=== PATIENT | female | born 1950 ===

== ENCOUNTER 2019-08-08 16:43 | Inpatient (IN) ==
[2019-08-08] MEDS ORDERED: SENNOSIDES 1 TABLET PO PRN (17:29)
[2019-08-08] MEDS ORDERED: IPRATROPIUM/ALBUTEROL 3 ML AMPUL.NEB NEB PRN (17:29)
[2019-08-08] MEDS ORDERED: POLYETHYLENE GLYCOL 3350 17 GM PACKET PO PRN (17:29)
[2019-08-08] MEDS ORDERED: ONDANSETRON 4 MG/2 ML VIAL IV PRN (17:29)
[2019-08-08] MEDS ORDERED: LACTULOSE 20 GM/30 ML ORAL.SOL PO PRN (17:29)
[2019-08-08] MEDS ORDERED: POTASSIUM CHLORIDE 20 MEQ TABLET PO PRN ×2 (17:29)
[2019-08-08] MEDS ORDERED: MAGNESIUM SULFATE 2 GM/50 ML BAG IV PRN (17:29)
[2019-08-08] MEDS ORDERED: POTASSIUM CHLORIDE 40 MEQ in DEXTROSE 5% IN WATER 500 ML IV PRN (17:29)
--- NOTE | 2019-08-08 17:39 | Internal Med History&Physical ---
Medical - H&P: HPI Patient information: Note initiated : 08/08/19 at 5:36 pm Service Date, if different from initiated Date: [] Patient: Jessy Chavez a 69 y/o F admitted on 08/08/19 for afib w rvr. Chief Complaint: [] History of present illness: Ms. Chavez is a 69 year old F Who presents to [facility] for shortness of breath this been going on for about a week. She denies any fevers or chills. Occasional dry cough. She had 10 pound weight gain stating she has been eating a lot of ice cream this week. She also feels much more fatigued than usual. After doing chores outside she felt like she needed to sit down little bit longer to catch her breath. There is no point of sudden discrete shortness of breath, it was more insidious. She denies any heart history. She denies any palpitations. She denies any chest pain. She did not states she has had any increased swelling her legs but when we looked at her legs in the bed she does admit that the are puffier than usual. He denies being sick recently. In the ER she was found to be in A. fib RVR with a rate of 120. An elevated d-dimer led to a CTA of the chest which showed no PE but did show pulmonary edema as well as right pleural effusion. She has a history of hypothyroidism and a TSH was done which was normal limits. Troponin was unremarkable. BNP was elevated Review of Systems: Pertinent positives as above. Denies headache/fever/chills/nausea/vomiting/abdominal pain/diarrhea. Remaining 10 point review of system reviewed negative Medical - H&P: PMH Medical history: Past medical history: Hypothyroidism Breast cancer possible Chronic kidney disease stage III Surgical history: Bilateral knee surgery Tonsillectomy Right colectomy with lymph node dissection right axilla Family history: States her mother and father both healthy Social history: Former smoker quit 13 years ago Denies alcohol use Was at home with her is been Medical - H&P: Meds Allergies Allergy/AdvReac Type Severity Reaction Status Date / Time Penicillins Allergy Unknown UNKNOWN Unverified 03/08/15 00:05 Medical - H&P: Reslt - Impressions CTA read as showing no PE but did show pulmonary edema and right pleural effusion Medical - H&P: A/P - Narrative A/P Narrative: Assessment: *Afib w/RVR (new): sounds like this has been going on for a week -CHADSVASC=3 *Acute CHF with Pulmonary Edema & Right pleural effusion: 2/2 above -Troponin negative *Dyspnea/Fatigue: 2/2 above *Hypothyroidism: TSH within normal limits * Plan: -IV lasix then will likely transition to Aldactone upon d/c -wean off dilt gtt to PO lopressor -echo pending -lovenox bid, will transition to NOAC at d/c -check mag -f/u with cardiology for possible cardioversion full code
[2019-08-08] MEDS ORDERED: METOPROLOL TARTRATE 5 MG/5 ML VIAL IV PRN (17:43)
[2019-08-08] MEDS: DILTIAZEM 125 MG in DEXTROSE 5% IN WATER 100 ML IV SCH (18:38)
[2019-08-08] MEDS ORDERED: FUROSEMIDE 40 MG/4 ML VIAL IV ONE (20:00)
[2019-08-08] MEDS: DOCUSATE SODIUM 100 MG CAPSULE PO SCH ×2 (20:37→21:44)
[2019-08-08] MEDS: METOPROLOL TARTRATE 25 MG TABLET PO SCH (20:37)
[2019-08-08] MEDS: 0.9 % SODIUM CHLORIDE 10 ML SYRINGE IV SCH (20:37)
[2019-08-09] MEDS: DILTIAZEM 125 MG in DEXTROSE 5% IN WATER 100 ML IV SCH (05:12)
[2019-08-09] MEDS: 0.9 % SODIUM CHLORIDE 10 ML SYRINGE IV SCH ×3 (05:36→21:15)
[2019-08-09 06:17] LABS: Basophils # (Auto) 0.1 K/mcL (0.0-0.3); Basophils % (Auto) 1.3 % (0.0-2.0); Eosinophils # (Auto) 0.2 K/mcL (0.0-0.7); Eosinophils % (Auto) 3.7 % (0.0-7.0); Granulocytes % (Auto) 54.1 % (38.0-78.0); Hematocrit 39.3 % (36.0-48.0); Lymphocytes # (Auto) 1.2 K/mcL (1.5-4.8); Mean Cell Volume 90.8 fL (80.0-100.0); Mean Corpuscular HGB Conc 33.2 g/dL (31.0-36.0); Mean Platelet Volume 9.9 fL (7.4-10.4); Monocytes # (Auto) 0.5 K/mcL (0.1-0.9); Monocytes % (Auto) 11.9 % (1.0-12.0); Platelet Count 151 K/mcL (140-440); RBC 4.33 M/mcL (4.00-5.20); Red Cell Distribution Width 16.2 % (11.5-14.5); WBC 4.2 K/mcL (4.5-11.0)
[2019-08-09 06:42] LABS: ALT/SGPT 19 U/l (0-40); AST/SGOT 24 U/l (0-37); Albumin 3.7 gm/dL (3.2-5.2); Albumin/Globulin Ratio 1.9 (1.0-2.3); Alkaline Phosphatase 46 U/L (39-117); Bilirubin,Direct 0.4 mg/dL (0.0-0.3); Bilirubin,Total 2.2 mg/dL (0.0-1.0); Blood Urea Nitrogen 16 mg/dl (8-23); Carbon Dioxide 22 mmol/L (22-30); Chloride 103 mmol/L (96-108); Glomerular Filtration Rate 42; Glucose 112 mg/dL (70-105); Lactate Dehydrogenase 268 U/L (94-250); Phosphorous 4.5 mg/dL (2.7-4.5); Triglycerides 93 mg/dl (<150); Uric Acid 8.5 mg/dL (2.5-8.0)
--- NOTE | 2019-08-09 07:16 | Internal Med Progress Note ---
Medical - PN: Subj Patient information: Note initiated : 08/09/19 at 7:13 am Service Date, if different from initiated Date: [] Patient: Jessy Chavez 69 y/o F admitted on 08/08/19 for afib w rvr. Chief Complaint: [] Interval history: Ms. Chavez is a 69 year old F Who presents to [facility] for shortness of breath this been going on for about a week. She denies any fevers or chills. Occasional dry cough. She had 10 pound weight gain stating she has been eating a lot of ice cream this week. She also feels much more fatigued than usual. After doing chores outside she felt like she needed to sit down little bit longer to catch her breath. There is no point of sudden discrete shortness of breath, it was more insidious. She denies any heart history. She denies any palpitations. She denies any chest pain. She did not states she has had any increased swelling her legs but when we looked at her legs in the bed she does admit that the are puffier than usual. He denies being sick recently. In the ER she was found to be in A. fib RVR with a rate of 120. An elevated d-dimer led to a CTA of the chest which showed no PE but did show pulmonary edema as well as right pleural effusion. She has a history of hypothyroidism and a TSH was done which was normal limits. Troponin was unremarkable. BNP was elevated 08/09 Patient off diltiazem drip last night. On p.o. Lopressor. Good diuresis last night. Denies shortness of breath this morning. Heart rate 70s to 90s. Echo done awaiting for results. No new complaints. Review of Systems: denies headache/fever/chills/nausea/vomiting/chest or abdominal pain/cough/diarrhea. Otherwise see above. - Constitutional Vitals: Vital Signs Temp Pulse Resp BP Pulse Ox 97.6 F 85 18 101/79 93 08/09/19 04:01 08/09/19 06:01 08/09/19 06:01 08/09/19 06:01 08/09/19 06:01 Period Temp Pulse Resp BP Sys/Lou Pulse Ox Last 24 Hr 97.3 F-98.0 F 32-108 14-29 74-112/53-79 90-96 Intake and Output 08/08/19 08/09/19 08/09/19 21:59 05:59 13:59 Intake Total 24 200 Output Total 1000 875 Balance -976 -675 Weight 79.787 kg Intake & Output: Intake & Output 08/08/19 08/09/19 08/09/19 21:59 05:59 13:59 Intake Total 24 200 Output Total 1000 875 Balance -976 -675 Weight 79.787 kg Intake: IV 24 Cardizem 125 mg In Dextrose 5% 24 in Water 100 ml @ 5 MG/HR 5 mls /hr IV Q12H [facility] Rx#:[id number] Oral 200 Output: Void Amount 1000 875 Other: Urine Appearance Clear Clear Urine Color Bright Yellow Bright Yellow Urine Odor Normal Normal Exam: General: Alert, Awake, No acute Distress Eyes/N/T: EOMI, Head/Neck: neck supple, CV: irreg irreg, No murmurs, Pulm: very minimal bibase rales - improved, no wheezing Abd: soft, nontender, +BS x4 Ext: no clubbing/cyanosis. 1+ b/l LE edema, chronic RUE edema from previous lymph node dissection for breast CA Neuro: Alert, no focal deficits, moves all extremities, Skin: warm/dry Medical - PN: Obj Da - Labs CBC & Chem 7: 08/09/19 04:19 08/09/19 04:19 Labs: Abnormal Lab Results 08/09/19 08/09/19 04:19 04:19 WBC 4.2 L RDW 16.2 H Lymph # (Auto) 1.2 L Anion Gap 17.0 H Creatinine 1.3 H Glucose 112 H Uric Acid 8.5 H Total Bilirubin 2.2 H Direct Bilirubin 0.4 H Lactate Dehydrogenase 268 H Total Protein 5.7 L Globulin 2.0 L Meds: Medications Albuterol/Ipratropium (Duoneb) 3 ml NEB Q4HP PRN PRN Reason: Shortness Of Breath Docusate Sodium (Colace) 100 mg PO BID [facility] Last Admin: 08/08/19 21:44 Dose: Not Given Documented by: Enoxaparin Sodium (Lovenox) 75 mg SQ BID [facility] Furosemide (Lasix) 40 mg IV BID [facility] Potassium Chloride 40 meq/ (Dextrose) 520 mls @ 130 mls/hr IV UD PRN PRN Reason: Potassium < 3 Magnesium Sulfate (Magnesium Sulfate) 2 gm in 50 mls @ 50 mls/hr IV UD PRN PRN Reason: Magnesium </= 1.6 Diltiazem HCl 125 mg/ Dextrose 125 mls @ 5 mls/hr IV Q12H [facility]; Protocol Last Admin: 08/09/19 05:12 Dose: Not Given Documented by: Lactulose (Cephulac) 10 gm PO DAILYP PRN PRN Reason: Constipation Levothyroxine Sodium (Synthroid) 112 mcg PO QAMAC [facility] Metoprolol Tartrate (Lopressor) 5 mg IV Q2HP PRN PRN Reason: Tachyarrhythmias HR>110 Metoprolol Tartrate (Lopressor) 25 mg PO BID [facility] Last Admin: 08/08/19 20:37 Dose: 25 mg Documented by: Ondansetron HCl (Zofran) 4 mg IV Q4HP PRN PRN Reason: Nausea And Vomiting Polyethylene Glycol (Miralax) 17 gm PO DAILYP PRN PRN Reason: Constipation Potassium Chloride (Kdur) 40 meq PO UD PRN PRN Reason: Potssium is 3-3.5 Potassium Chloride (Kdur) 40 meq PO UD PRN PRN Reason: Potassium < 3 Senna (Senokot) 2 tab PO HSP PRN PRN Reason: Constipation Sodium Chloride (Saline Flush) 10 ml IV Q8 [facility] Last Admin: 08/09/19 05:36 Dose: 10 ml Documented by: Medical - PN: A/P - Time Spent With Patient Total time spent is greater than 50% in coordination of care (as documented) at patient's floor/unit and/or counseling patient: - Narrative A/P Narrative: Assessment: *Afib w/RVR (new): sounds like this has been going on for a week -CHADSVASC=3 -rates 70-90's *Acute CHF with Pulmonary Edema & Right pleural effusion: 2/2 above -Troponin negative -good diuresis o/n (also >500 prior to transfer) *Dyspnea/Fatigue: 2/2 above, Improved *Hypothyroidism: TSH within normal limits *Likely CKD III: did have bump in Cr from diuresis Plan: -s/p IV lasix, hold for now -off dilt gtt to PO lopressor -echo pending -lovenox bid, will transition to NOAC at d/c -LESLY robles -f/u with cardiology for possible future cardioversion full code Medical - PN: Qual - Stroke Symptom Onset Unknown: No - VTE Deep Vein Thrombosis/Pulmonary Embolism Present on Admission: No
[2019-08-09] MEDS: LEVOTHYROXINE SODIUM 112 MCG TABLET PO SCH (07:58)
--- NOTE | 2019-08-09 08:00 | XRay Report ---
CLINICAL INFORMATION: pulm edema, effusion COMPARISON: 08/08/2019 FINDINGS: Moderate cardiomegaly as decreased slightly. Mediastinum is unremarkable. Pulmonary vessels have returned to normal in caliber. Interstitial edema has improved with minimal residual. Small right pleural effusion persists. Minor bibasilar airspace disease representing either atelectasis or developing infiltrate IMPRESSION: Near-complete interval resolution CHF. Small persistent right pleural effusion Mild bibasilar airspace disease progressing - either atelectasis or developing infiltrate Interpreted and Authenticated by: Dav Tan 08/09/19
[2019-08-09] MEDS: DOCUSATE SODIUM 100 MG CAPSULE PO SCH ×3 (08:16→21:11)
[2019-08-09] MEDS: METOPROLOL TARTRATE 25 MG TABLET PO SCH ×2 (08:16→21:15)
[2019-08-09] MEDS: ENOXAPARIN 80 MG/0.8 ML SYRINGE SQ SCH ×2 (08:16→21:14)
[2019-08-09] MEDS ORDERED: FUROSEMIDE 40 MG/4 ML VIAL IV SCH (09:00)
[2019-08-09] MEDS ORDERED: DILTIAZEM 125 MG in DEXTROSE 5% IN WATER 100 ML IV PRN (09:15)
[2019-08-09] MEDS ORDERED: DIGOXIN 500 MCG/2 ML AMPUL IV ONE ×3 (16:02→22:00)
[2019-08-09] MEDS ORDERED: 0.9 % SODIUM CHLORIDE 250 ML IV ONE (17:14)
[2019-08-09] MEDS ORDERED: IOPAMIDOL 100 ML BOTTLE IV ONE (17:45)
--- NOTE | 2019-08-09 18:11 | Cat Scan Report ---
CLINICAL INFORMATION: Chest pain and atrial fibrillation. History of breast cancer COMPARISON: Chest CT 01/07/2011 and most recently 08/08/2019 TECHNIQUE: ml of Isovue-370 were injected intravenously. Using SmartPrep to maximize pulmonary artery opacification, .625mm helical slices were obtained from the lung apices through the lung bases. Following reconstruction, 2.5 mm sagittal, coronal, and axial reformations were processed. The exam was reviewed at mediastinal, lung, and bone windows. The exam was performed using radiation dose optimization techniques including, but not limited to, automated exposure control, adjustment of the mA and/or kV according to patient size and use of iterative reconstruction technique. FINDINGS: The pulmonary arteries are mildly distended, but well opacified no evidence of embolus. The unopacified thoracic aorta is normal diameter. The heart is moderately enlarged but there is no calcific plaque in the coronary arteries. The esophagus is unremarkable. Mildly enlarged mediastinal lymph nodes are unchanged: the largest is 20 mm in the AP window. These are almost certainly benign reactive lymph nodes. Thyroid is diminutive. Pulmonary parenchymal windows show moderate right and small/moderate left pleural effusions which are unchanged. They have resulted in subsegmental compressive atelectasis both posterior lower lobes. Mild underlying chronic bronchitis noted including a mosaic perfusion pattern throughout both lungs. There is mild edema in the interlobular septi in both lungs more prominent on the left. A small patchy infiltrate in the right lung apex superimposed upon fibrosis is new from 2010 but is unchanged from the most recent CT chest one day prior. Neurologic abnormality. There is a 5 cm seroma in lumpectomy site right breast demonstrating long-term stability. Images through the superior abdomen show a 18 mm solitary cholesterol stone in the gallbladder. IMPRESSION: 1. No evidence of pulmonary embolus 2. Moderate right and [id number] left pleural effusion 3. Mild pulmonary vascular distention and interstitial edema in both lung more on prominent left compatible with mild CHF. The heart is also moderately enlarged. 4. Small right upper lobe infiltrate - stable 5. Mild mediastinal adenopathy which demonstrate long-term stability compatible with benign reactive lymph nodes. 6. Solitary 18 mm cholesterol stone in the gallbladder 7. Chronic 5 cm seroma in the lumpectomy site right breast - stable Interpreted and Authenticated by: Dav Tan 08/09/19
[2019-08-10] MEDS: 0.9 % SODIUM CHLORIDE 10 ML SYRINGE IV SCH ×2 (05:41→15:06)
--- NOTE | 2019-08-10 07:17 | Internal Med Progress Note ---
Medical - PN: Subj Patient information: Note initiated : 08/10/19 at 7:13 am Service Date, if different from initiated Date: [] Patient: Jessy Chavez 69 y/o F admitted on 08/08/19 for afib w rvr. Chief Complaint: [] Interval history: Ms. Chavez is a 69 year old F Who presents to [facility] for shortness of breath this been going on for about a week. She denies any fevers or chills. Occasional dry cough. She had 10 pound weight gain stating she has been eating a lot of ice cream this week. She also feels much more fatigued than usual. After doing chores outside she felt like she needed to sit down little bit longer to catch her breath. There is no point of sudden discrete shortness of breath, it was more insidious. She denies any heart history. She denies any palpitations. She denies any chest pain. She did not states she has had any increased swelling her legs but when we looked at her legs in the bed she does admit that the are puffier than usual. He denies being sick recently. In the ER she was found to be in A. fib RVR with a rate of 120. An elevated d-dimer led to a CTA of the chest which showed no PE but did show pulmonary edema as well as right pleural effusion. She has a history of hypothyroidism and a TSH was done which was normal limits. Troponin was unremarkable. BNP was elevated patient was transferred on diltiazem gtt, this was titrated off after arrival and PO lopressor was started. 08/09 Patient off diltiazem drip last night. On p.o. Lopressor. Good diuresis last night. Denies shortness of breath this morning. Heart rate 70s to 90s. Echo done awaiting for results. No new complaints. 08/10 Doing well overnight. Heart rate 70s 80s. Occasional cough but denies shortness of breath. CT chest no PE noted. Echo with poor ejection fraction and some reduced systolic function of the right ventricle. Dilated atrium. Case was discussed with Dr. Cinthya Cano cardiology yesterday who recommended the ruling out the PE and continuing heart failure regimen medications as able. On Lopressor originally for heart rate, continue add low-dose JEFFRY if blood pressure willing as well as spironolactone. Pending labs at this time. Setting up for outpatient stress test at [facility]. Review of Systems: denies headache/fever/chills/nausea/vomiting/chest or abdominal pain/cough/diarrhea. Otherwise see above. - Constitutional Vitals: Vital Signs Temp Pulse Resp BP Pulse Ox 98.1 F 79 19 107/82 91 08/10/19 00:01 08/10/19 05:58 08/10/19 05:58 08/10/19 05:01 08/10/19 05:58 Period Temp Pulse Resp BP Sys/Lou Pulse Ox Last 24 Hr 98 F-98.2 F 49-97 11-27 82-117/57-103 88-98 Intake and Output 08/09/19 08/10/19 08/10/19 21:59 05:59 13:59 Intake Total 480 Output Total 100 550 Balance 380 -550 Weight 81.919 kg Intake & Output: Intake & Output 08/09/19 08/10/19 08/10/19 21:59 05:59 13:59 Intake Total 480 Output Total 100 550 Balance 380 -550 Weight 81.919 kg Intake: Oral 480 Output: Void Amount 100 550 Other: Meal Dinner Percent of Meal Consumed 100% Feeding Ability Independent Exam: General: Alert, Awake, No acute Distress Eyes/N/T: EOMI, Head/Neck: neck supple, CV: irreg irreg, No murmurs, Pulm: very minimal bibase rales - overall improved, no wheezing Abd: soft, nontender, +BS x4 Ext: no clubbing/cyanosis. 1+ b/l LE edema, chronic RUE edema from previous lymph node dissection for breast CA Neuro: Alert, no focal deficits, moves all extremities, Skin: warm/dry Medical - PN: Obj Da - Labs CBC & Chem 7: 08/09/19 04:19 08/09/19 04:19 Labs: Abnormal Lab Results 08/09/19 08/09/19 08/09/19 16:07 04:19 04:19 WBC 4.2 L RDW 16.2 H Lymph # (Auto) 1.2 L D-Dimer 2.48 H Anion Gap 17.0 H Creatinine 1.3 H Glucose 112 H Uric Acid 8.5 H Total Bilirubin 2.2 H Direct Bilirubin 0.4 H Lactate Dehydrogenase 268 H Total Protein 5.7 L Globulin 2.0 L Meds: Medications Albuterol/Ipratropium (Duoneb) 3 ml NEB Q4HP PRN PRN Reason: Shortness Of Breath Docusate Sodium (Colace) 100 mg PO BID [facility] Last Admin: 08/09/19 21:11 Dose: Not Given Documented by: Enoxaparin Sodium (Lovenox) 75 mg SQ BID [facility] Last Admin: 08/09/19 21:14 Dose: 75 mg Documented by: Potassium Chloride 40 meq/ (Dextrose) 520 mls @ 130 mls/hr IV UD PRN PRN Reason: Potassium < 3 Magnesium Sulfate (Magnesium Sulfate) 2 gm in 50 mls @ 50 mls/hr IV UD PRN PRN Reason: Magnesium </= 1.6 Diltiazem HCl 125 mg/ Dextrose 125 mls @ 5 mls/hr IV Q12HP PRN; Protocol PRN Reason: Tachyarrhythmias Lactulose (Cephulac) 10 gm PO DAILYP PRN PRN Reason: Constipation Levothyroxine Sodium (Synthroid) 112 mcg PO QAMAC [facility] Last Admin: 08/09/19 07:58 Dose: 112 mcg Documented by: Metoprolol Tartrate (Lopressor) 5 mg IV Q2HP PRN PRN Reason: Tachyarrhythmias HR>110 Metoprolol Tartrate (Lopressor) 12.5 mg PO BID [facility] Last Admin: 08/09/19 21:15 Dose: 12.5 mg Documented by: Ondansetron HCl (Zofran) 4 mg IV Q4HP PRN PRN Reason: Nausea And Vomiting Pneumococcal Polyvalent Vaccine (Pneumovax 23) 0.5 ml IM .ONCE ONE Stop: 08/10/19 10:01 Polyethylene Glycol (Miralax) 17 gm PO DAILYP PRN PRN Reason: Constipation Potassium Chloride (Kdur) 40 meq PO UD PRN PRN Reason: Potssium is 3-3.5 Potassium Chloride (Kdur) 40 meq PO UD PRN PRN Reason: Potassium < 3 Senna (Senokot) 2 tab PO HSP PRN PRN Reason: Constipation Sodium Chloride (Saline Flush) 10 ml IV Q8 [facility] Last Admin: 08/10/19 05:41 Dose: 10 ml Documented by: Medical - PN: A/P - Time Spent With Patient Total time spent is greater than 50% in coordination of care (as documented) at patient's floor/unit and/or counseling patient: - Narrative A/P Narrative: Assessment: *Afib w/RVR (new): sounds like this has been going on for a week -CHADSVASC=3 -rates 60-80's *Acute on possibly chronic CHF with Pulmonary Edema & Right pleural effusion : 2/2 above -Troponin negative, no PE on CTA -good diuresis o/n (also >500 prior to transfer) -echo with EF 35%, reduced RV systolic fxn, dilated Left/Right atrium *Dyspnea/Fatigue: 2/2 above, Improved *Hypothyroidism: TSH within normal limits *Likely CKD III: did have bump in Cr from diuresis Plan: -cont Lopressor, -Discussed the Case with [facility] on-call counselor marriage and family Dr. Mendes who recommended the usual therapy of BB/ACEI/aldactone. will start ACEI if BP will allow and aldactone if BP allow and renal fxn stable. He also recommended r/o PE and that if CTA warranted after d-dimer check then she may need some IV fluid to protect kidneys with subsequent diuresis after if needed. -Will also schedule outpt nuc stress test at [facility] with [place] cardiology. -lovenox bid, will transition to NOAC at d/c -LESLY robles -f/u with cardiology for possible future cardioversion and further titration of HF meds full code Medical - PN: Qual - Stroke Symptom Onset Unknown: No - VTE Deep Vein Thrombosis/Pulmonary Embolism Present on Admission: No
[2019-08-10] MEDS: LEVOTHYROXINE SODIUM 112 MCG TABLET PO SCH (07:28)
[2019-08-10] MEDS: METOPROLOL TARTRATE 25 MG TABLET PO SCH (08:15)
[2019-08-10] MEDS: ENOXAPARIN 80 MG/0.8 ML SYRINGE SQ SCH (08:15)
[2019-08-10] MEDS: DOCUSATE SODIUM 100 MG CAPSULE PO SCH (08:29)
[2019-08-10 09:02] LABS: ALT/SGPT 16 U/l (0-40); AST/SGOT 20 U/l (0-37); Albumin 3.8 gm/dL (3.2-5.2); Albumin/Globulin Ratio 1.8 (1.0-2.3); Alkaline Phosphatase 45 U/L (39-117); Bilirubin,Direct 0.4 mg/dL (0.0-0.3); Bilirubin,Total 1.7 mg/dL (0.0-1.0); Blood Urea Nitrogen 15 mg/dl (8-23); Calcium 9.1 mg/dl (8.6-10.4); Carbon Dioxide 25 mmol/L (22-30); Chloride 104 mmol/L (96-108); Globulin 2.1 gm/dL (2.2-3.7); Glomerular Filtration Rate 58; Glucose 93 mg/dL (70-105); Lactate Dehydrogenase 286 U/L (94-250); Phosphorous 3.6 mg/dL (2.7-4.5); Triglycerides 82 mg/dl (<150); Uric Acid 7.4 mg/dL (2.5-8.0)
[2019-08-10] MEDS ORDERED: FLU VACC QS2019-20(6MOS UP)/PF 60 MCG/0.5 ML SYRINGE IM ONE (10:00)
[2019-08-10] MEDS ORDERED: PNEUMOCOCCAL 23-VAL P-SAC VAC 0.5 ML SYRINGE IM ONE (10:00)
--- NOTE | 2019-08-10 11:51 | Discharge Summary ---
Medical - DS: Prov Patient information: Note initiated : 08/10/19 at 11:48 am Service Date, if different from initiated Date: [] Patient: Jessy Chavez 69 y/o F admitted on 08/08/19 for afib w rvr. Chief Complaint: [] Date of admission: 08/08/19 16:43 Discharge date: 08/10/19 Primary care physician: Ena Marina Medical - DS: Meds - Discharge Medications Prescriptions: Spironolactone [Aldactone] 12.5 mg PO DAILY #30 tab Transmission Status: Pending to [facility] #[id number] Apixaban [Eliquis] 5 mg PO BID #60 tab Transmission Status: Pending to [facility] #[id number] Metoprolol Tartrate [Lopressor] 12.5 mg PO BID #60 tab Transmission Status: Pending to [facility] #[id number] Active and Home Medications: Home Medications Levothyroxine Sodium [Synthroid] 112 mcg PO DAILY 08/08/19 [History Confirmed 08/08/19 Last Taken 08/08/19 06:00] Medical - DS: Hosp Hospital Course: Ms. Chavez is a 69 year old F Who presents to [facility] [place], operated by [facility] for shortness of breath this been going on for about a week. She denies any fevers or chills. Occasional dry cough. She had 10 pound weight gain stating she has been eating a lot of ice cream this week. She also feels much more fatigued than usual. After doing chores outside she felt like she needed to sit down little bit longer to catch her breath. There is no point of sudden discrete shortness of breath, it was more insidious. She denies any heart history. She denies any palpitations. She denies any chest pain. She did not states she has had any increased swelling her legs but when we looked at her legs in the bed she does admit that the are puffier than usual. He denies being sick recently. In the ER she was found to be in A. fib RVR with a rate of 120. An elevated d-dimer led to a CTA of the chest which showed no PE but did show pulmonary edema as well as right pleural effusion. She has a history of hypothyroidism and a TSH was done which was normal limits. Troponin was unremarkable. BNP was elevated patient was transferred on diltiazem gtt, this was titrated off after arrival and PO lopressor was started. 08/09 Patient off diltiazem drip last night. On p.o. Lopressor. Good diuresis last night. Denies shortness of breath this morning. Heart rate 70s to 90s. Echo done awaiting for results. No new complaints. 08/10 Doing well overnight. Heart rate 70s 80s. Occasional cough but denies shortness of breath. CT chest no PE noted. Echo with poor ejection fraction and some reduced systolic function of the right ventricle. Dilated atrium. Case was discussed with Dr. [facility]ology yesterday who recommended the ruling out the PE and continuing heart failure regimen medications as able. On Lopressor originally for heart rate, continue add low-dose JEFFRY if blood pressure willing as well as spironolactone. Pending labs at this time. Setting up for outpatient stress test at [facility]. Patient doing well. Asymptomatic. Heart rate is controlled. Discussed with her close follow-up with cardiology and nuclear stress test being scheduled. Radiology for further titration of medications. Metoprolol may be switched to long-acting in the future but at this time blood pressure was quite soft as well as using to improve rate control. Assessment: *Afib w/RVR (new): sounds like this has been going on for a week -CHADSVASC=3 -rates 60-80's *Acute on possibly chronic CHF with Pulmonary Edema & Right pleural effusion : 2/2 above -Troponin negative, no PE on CTA -good diuresis o/n (also >500 prior to transfer) -echo with EF 35%, reduced RV systolic fxn, dilated Left/Right atrium *Dyspnea/Fatigue: 2/2 above, Improved *Hypothyroidism: TSH within normal limits *Likely CKD III: did have bump in Cr from diuresis, improved today Discharge diagnosis: A. fib RVR acute on suspected chronic systolic heart failure Secondary discharge diagnosis: Chronic kidney disease dyspnea hypothyroidism - Time Spent with Patient Total time spent providing and/or coordinating discharge services: Greater than 30 minutes Medical - DS: Exam - Constitutional Vitals: Vital Signs Temp Pulse Resp BP Pulse Ox 08/10/19 11:01 87 19 108/83 94 08/10/19 11:00 82 22 92 08/10/19 10:39 84 19 89/63 91 08/10/19 09:20 16 08/10/19 09:14 94 08/10/19 08:33 21 105/79 90 08/10/19 07:48 94 08/10/19 07:44 22 08/10/19 07:01 97.8 F 81 17 107/88 94 08/10/19 06:01 75 16 91/62 95 08/10/19 05:58 79 19 91 08/10/19 05:01 68 14 107/82 89 L 08/10/19 04:01 74 17 99/75 95 08/10/19 04:00 63 15 95 08/10/19 03:01 11 L 98/74 08/10/19 02:35 13 08/10/19 02:01 14 87/66 08/10/19 02:00 97 08/10/19 01:01 66 26 H 93/71 97 08/10/19 00:01 98.1 F 72 14 87/60 95 08/09/19 23:01 79 14 99/74 97 08/09/19 22:01 77 15 101/78 88 L 08/09/19 21:01 77 23 H 100/76 93 08/09/19 20:01 74 14 98/75 98 08/09/19 19:01 98 F 82 26 H 110/69 89 L 08/09/19 18:01 92 H 16 117/103 93 08/09/19 17:04 86 23 H 92 08/09/19 17:01 94 H 20 88/74 88 L 08/09/19 16:04 98.2 F 08/09/19 16:03 54 L 16 90/70 94 08/09/19 15:35 49 L 23 H 94 08/09/19 15:34 21 95/77 08/09/19 15:27 95 H 15 93 08/09/19 14:01 81 17 89/76 94 08/09/19 13:07 97 H 19 90/72 94 08/09/19 12:03 93 H 20 93/76 94 08/09/19 12:01 82 16 84/67 94 Intake and Output 08/09/19 08/10/19 08/10/19 21:59 05:59 13:59 Intake Total 480 740 Output Total 100 550 100 Balance 380 -550 640 Intake: Oral 480 740 Output: Void Amount 100 550 100 Other: Meal Dinner Breakfast Percent of Meal Consumed 100% 100% Feeding Ability Independent Urine Appearance Clear Urine Color Pale Urine Odor Normal Stool Size Moderate Stool Color Brown Stool Consistency Dry and Hard # Voids 1 Weight 81.919 kg Medical - DS: Data Labs on day of discharge: Labs from last 24 hours 08/10/19 08/09/19 08:02 16:07 D-Dimer 2.48 H Sodium 141 Potassium 4.1 Chloride 104 Carbon Dioxide 25 Anion Gap 12.0 BUN 15 Creatinine 1.0 GFR Calculation 58 Glucose 93 Uric Acid 7.4 Calcium 9.1 Phosphorus 3.6 Magnesium 1.9 Total Bilirubin 1.7 H Direct Bilirubin 0.4 H GGT 13 AST 20 ALT 16 Alkaline Phosphatase 45 Lactate Dehydrogenase 286 H Total Protein 5.9 Albumin 3.8 Globulin 2.1 L Albumin/Globulin Ratio 1.8 Triglycerides 82 Medical - DS: A/P - Patient/Caregiver Discharge Instructions Activity: increase activity as tolerated Diet: Cardiac Additional Instructions: Monitor weight daily and monitor blood pressure daily and 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 Referral to see cardiology group over at [facility] 5 to 10 days as well as setting up for nuclear stress test at [facility] next week. - Follow up Plan Follow up with: Ena Marina ARNP [Primary Care Provider] - Blanca Raines ARNP [Physician] - (A referral has been sent. They will contact you to schedule an appointment.) Disposition: Home, Self-Care Prognosis: Fair Rehab Potential: Fair Overall status at discharge: patient is progressing back to baseline Medical - DS: Qual - VTE Deep Vein Thrombosis/Pulmonary Embolism Present on Admission: No
== END 2019-08-10 14:40 | disposition home or self-care (01) | DRG 308 ==
LOC: ICU 16:43
PROVIDERS: ADMIT Internal Medicine; ATTEND Internal Medicine